=== PATIENT | male | born 1990 | race Caucasian/White ===

== ENCOUNTER → 2016-11-07 | Outpatient (CLI) | payer BC, OTHER ==
[~2016-11-07] VITALS: Ht 190.5 cm; Wt 95.3 kg
[~2016-11-07] MED LIST: CIPRO500 MG PO
[2016-11-07 09:43] VITALS: BP 139/92
[2016-11-07 09:55] LABS: HEMATOCRIT 40.5 % (42.0-52.0); HEMOGLOBIN 13.2 gm/dL (14.0-18.0); MCH 26.3 pg (26.0-34.0); MCHC 32.5 g/dL (28.0-37.0); MCV 80.8 fL (80.0-100.0); RBC 5.01 mil/uL (4.50-6.00); RDW 15.6 % (10.5-14.5); WBC 5.6 thou/uL (4.0-11.0)
[2016-11-07 10:03] LABS: CALCIUM 9.3 mg/dL (8.5-10.1); CREATININE 0.7 mg/dL (0.7-1.3); POTASSIUM 4.2 mmol/L (3.5-5.1)
[2016-11-07 12:37] VITALS: BP 125/74
== END ==
LOC: SPEC
PROVIDERS: Specialist
DX: N36.8 Other specified disorders of urethra (principal); G82.20 Paraplegia, unspecified; Z79.899 Other long term (current) drug therapy; Z80.8 Family history of malignant neoplasm of other organs or systems